=== PATIENT | male | born 1940 | race Caucasian/White ===

== ENCOUNTER → 2016-06-24 | Outpatient (CLI) | payer MEDICARE, OTHER | END | disposition home or self-care (01) | LOC: GMAB 10:23 | PROVIDERS: ATTEND Family Medicine | DX: Z12.5 Encounter for screening for malignant neoplasm of prostate (principal); R53.83 Other fatigue; I10 Essential (primary) hypertension | CPT/HCPCS: 84403; 84443; G0103 ==

== ENCOUNTER → 2017-05-31 | Outpatient (CLI) | payer MEDICARE, OTHER ==
--- NOTE | 2017-05-31 20:54 | US ---
EXAM DESCRIPTION: Carotid Duplex: ULTRASOUND. CLINICAL HISTORY: OCCLUSION AND STENOSIS OF BILATERAL CAROTID ARTERIES COMPARISON: None. TECHNIQUE: Transcutaneous scanning utilizing 2-dimensional and Doppler modes to evaluate the bilateral carotid systems and vertebral arteries. Percentage of diameter of stenosis or no stenosis recorded will be based upon NASCET criteria. FINDINGS: Peak systolic/end diastolic (CM-Sec) CCA Right 97/9 Left 82/17. ICA Right proximal 57/12, mid 64/14. Left proximal 49/12, mid 54/19. Vertebral Right 67/6 Left 37/12. ECA (PS Only) Right 104 left 65. ICA/CCA peak systolic ratio: Right 0.7 Left 0.7 ICA/CCA end diastolic ratio: Right 1.5 Left 1.1 Vertebral arteries: antegrade flow. Comments: Atherosclerotic calcification of the bilateral common carotid bifurcations. Area stenosis in the proximal left ICA is 24%. Diameter stenosis is 34%. Color turbulent flow in the distal ICAs bilaterally. IMPRESSION: 1. Doppler evaluation of the bilateral carotid systems and vertebral arteries shows no hemodynamically significant stenoses. 2. No significant amount of plaque seen in the carotid arteries bilaterally. Bilateral vertebral arteries showed antegrade-cephalad flow. 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
== END | disposition home or self-care (01) ==
LOC: US 11:00
PROVIDERS: ATTEND Family Medicine
DX: I65.23 Occlusion and stenosis of bilateral carotid arteries (principal)

== ENCOUNTER → 2018-02-23 | Outpatient (CLI) | payer MEDICARE, OTHER ==
--- NOTE | 2018-02-24 09:46 | US ---
EXAM DESCRIPTION: Soft Tissue,Abdomen CLINICAL HISTORY: 77 years Male, ENLARGED LYMPHNODES COMPARISON: None. TECHNIQUE: Targeted sonographic imaging of the left chest wall was performed by the reservations sales agent. Images were acquired and submitted for review. IMPRESSION: Targeted sonographic imaging of the left chest wall in the area palpated by the patient shows an oval circumscribed mass with heterogeneous internal echogenicity. This mass measures approximately 2.8 x 2.4 x 1.5 cm respectively. The mass is located immediately deep to the cutaneous layer. No internal vascularity is detected within this mass. No normal lymphatic tissue is seen. Broad differential ranging from sebaceous cyst to neoplastic disease. Consider surgical excision or image guided sampling. Electronically signed by: Alo Loya MD 02/24/2018 9:44 AM CDT
== END ==
LOC: RAD 12:42
PROVIDERS: ATTEND Family Medicine
DX: R59.9 Enlarged lymph nodes, unspecified (principal)

== ENCOUNTER 2018-08-02 19:46 | Emergency (ER) | payer MEDICARE, OTHER ==
--- NOTE | 2018-08-02 20:47 | RAD ---
2 VIEWS right HUMERUS RADIOGRAPHIC SERIES. INDICATIONS: Pain post fall. COMPARISONS: No comparisons are available. FINDINGS: Degenerative disease partially visualized in the right shoulder and right elbow. No fractures or dislocations. No lytic or blastic bone lesions. The partially visualized right ribs are intact. Lateral right lung is clear. IMPRESSION: Normal for age examination. Electronically signed by: Inder Santoro MD 08/02/2018 8:44 PM CDT
--- NOTE | 2018-08-02 20:49 | CT ---
EXAM DESCRIPTION: Maxillofacial CLINICAL HISTORY: 78 years Male fell onto nose COMPARISON: None. TECHNIQUE: Contiguous axial images obtained through the maxillofacial region without IV contrast. Reformatted images obtained. This exam was performed according to our department optimization program which includes automated exposure control, adjustment of the mA and/or kv according to patient size and/or use of iterative reconstruction technique. FINDINGS: Poorly defined foci of decreased attenuation in the brain parenchyma do not exert significant mass effect on surrounding structures and are likely sequela of prior insult, most likely on the basis of small vessel disease. There is soft tissue swelling at the bridge of the nose. There is a nondisplaced left nasal bone fracture in anatomic alignment. The post septal orbits appear unremarkable. No fluid or significant mucosal thickening in the visualized paranasal sinuses. No additional facial bone fractures are identified. IMPRESSION: Left nasal bone fracture. No other fracture. Electronically signed by: Awais Zimmer 08/02/2018 8:46 PM CDT
--- NOTE | 2018-08-02 21:51 | ED.PDOC ---
History of Present Illness - General Chief Complaint: Trauma Stated Complaint: facial pain, fall Time Seen by Provider: 08/02/18 21:37 Source: patient, family Exam Limitations: no limitations - History of Present Illness Initial Comments: PT WAS RUNNING AFTER GRANDSON, TRIPPED AND FELL ON THE CONCRETE AND HIT HIS FACE AND RUE. EPISTAXIS ENSUED (NOW RESOLVED). PAIN R HUMERUS. NO OTHER PAIN BESIDES NOSE AND R HUMERUS. Severity: moderate Improving Factors: immobilization Worsening Factors: nothing Associated Symptoms: denies symptoms Allergies/Adverse Reactions: Allergies Codeine Allergy (Verified 11/18/15 05:07) Home Medications: Ambulatory Orders Quinapril HCl [Accupril] 11/18/15 amLODIPine BESYLATE 11/18/15 Review of Systems - Review of Systems Constitutional: States: no symptoms reported EENTM: States: nose pain. Denies: eye pain, ear pain, throat pain, mouth pain Respiratory: Denies: cough, short of breath Cardiology: Denies: chest pain, palpitations Gastrointestinal/Abdominal: Denies: abdominal pain, nausea Genitourinary: States: no symptoms reported. Denies: pain Musculoskeletal: Denies: back pain, neck pain Skin: States: no symptoms reported Neurological: Denies: headache, numbness, paresthesia, tremors, weakness Endocrine: States: no symptoms reported Hematologic/Lymphatic: States: no symptoms reported All other Systems: Reviewed and Negative Past Medical History (General) - Patient Medical History Hx Congestive Heart Failure: No Hx Hypertension: Yes Hx Diabetes: No Hx MRSA: No Surgical History: appendectomy - Vaccination History Hx Tetanus, Diphtheria Vaccination: No Hx Influenza Vaccination: No Family Medical History - Family History Father Family History: Unknown Physical Exam - Physical Exam General Appearance: Alert, No apparent distress Eye Exam: bilateral normal Ears, Nose, Throat: hearing grossly normal, normal pharynx, sinus pain/drainage, other - BL NARES DRIED BLOOD. NO MALALIGNMENT BUT BL NASAL BRIDGE EDEMATOUS. Neck: non-tender, full range of motion, supple Respiratory: chest non-tender, lungs clear Cardiovascular/Chest: normal peripheral pulses, regular rate, rhythm Gastrointestinal/Abdominal: normal bowel sounds, non tender, soft Rectal Exam: deferred Back Exam: no CVA tenderness, no vertebral tenderness Extremity: normal range of motion, normal inspection, other - R HUMERUS TTP. NO ECCHYMOSIS. NO ABRASION. REMAINING EXTREMITIES PAINLESS FROM AND NTTP. 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 MAXILLOFACIAL CT: L NONDISPLACED NASAL BONE FRX. - EKG/XRAY/CT CT Ordered: Yes - facial Departure - Departure Clinical Impression: Nasal bone fracture Qualifiers: Encounter type: initial encounter Fracture type: closed Qualified Code(s): S02.2XXA - Fracture of nasal bones, initial encounter for closed fracture Contusion of upper arm, left Qualifiers: Encounter type: initial encounter Qualified Code(s): S40.022A - Contusion of left upper arm, initial encounter Disposition: Discharge to Home or Self Care Condition: Good Departure Forms: ED Discharge - Pt. Copy, Patient Portal Self Enrollment Instructions: Nose Fracture (DC) Diet: resume usual diet Activity: increase activity as tolerated Referrals: EDSON WEST MD [Primary Care Provider] - 1-2 Weeks Home Medications: Ambulatory Orders Quinapril HCl [Accupril] 11/18/15 amLODIPine BESYLATE 11/18/15 Additional Instructions: Please be cautious to avoid any contact with the nose in order to avoid further trauma.
[2018-08-02 22:03] VITALS: BP 164/81; TEMP 98.1; O2SAT 97
== END 2018-08-02 22:03 | disposition home or self-care (01) ==
LOC: ER 19:46
DX: S02.2XXA Fracture of nasal bones, initial encounter for closed fracture (principal); S40.022A Contusion of left upper arm, initial encounter; I10 Essential (primary) hypertension; Z79.899 Other long term (current) drug therapy; Z88.5 Allergy status to narcotic agent; W01.0XXA Fall on same level from slipping, tripping and stumbling without subsequent striking against object, initial encounter; Y93.02 Activity, running; Y92.9 Unspecified place or not applicable

== ENCOUNTER → 2018-08-10 | Outpatient (CLI) | payer MEDICARE, OTHER ==
--- NOTE | 2018-08-10 18:32 | MRI ---
MRI right shoulder without contrast INDICATION: Shoulder pain fall 2 days ago TECHNIQUE: Noncontrast MR imaging right shoulder FINDINGS: Diffuse tendinosis and high-grade interstitial partial tear subscapularis tendon with adjacent bursal edema. No complete retraction. No bicep rupture or dislocation. There is interstitial tendinosis intracapsular. Moderate hypertrophic AC joint osteoarthrosis. Prominent tendinosis with interstitial partial tears of the infraspinatus and supraspinatus greater than 50% maximal involvement but no retraction. Mild cystic change/resorption at the base the greater tuberosity. Moderate subacromial and subdeltoid bursitis and diffuse pericapsular edema especially anteriorly. Degenerative frayed-appearing small posterior superior labrum. Edema/cystic changes in the Hill-Sachs region raising question of a transient anterior dislocation/subluxation reduced. No advanced muscle atrophy IMPRESSION: High-grade partial tear subscapularis tendon without complete retraction Partial thickness tears and tendinosis supraspinatus and infraspinatus without retraction Degenerative posterior superior labral tear Resorptive cystic change and edema or small Hill-Sachs lesion posterior superior humerus Moderate hypertrophic AC joint arthrosis Subacromial and subdeltoid bursitis and pericapsular edema Interstitial tendinosis proximal long head bicep Electronically signed by: Marco A Mnae MD 08/10/2018 6:29 PM CDT
== END ==
LOC: MRI 09:00
PROVIDERS: ATTEND Physician Assistant
DX: S46.011A Strain of muscle(s) and tendon(s) of the rotator cuff of right shoulder, initial encounter (principal); M71.811 Other specified bursopathies, right shoulder; M19.011 Primary osteoarthritis, right shoulder; M75.21 Bicipital tendinitis, right shoulder

== ENCOUNTER → 2018-09-27 | Outpatient (CLI) | payer MEDICARE, OTHER | LOC: LAB.NP 13:47 | PROVIDERS: ATTEND Surgery | DX: L72.0 Epidermal cyst (principal) ==

== ENCOUNTER → 2019-10-27 | Outpatient (CLI) | payer MEDICARE, OTHER | LOC: GMAE 11:08 | PROVIDERS: ATTEND Family Medicine | DX: Z12.5 Encounter for screening for malignant neoplasm of prostate (principal); I10 Essential (primary) hypertension | CPT/HCPCS: 84443; G0103 ==

== ENCOUNTER → 2020-01-09 | Outpatient (CLI) | payer MEDICARE, OTHER ==
--- NOTE | 2020-01-09 16:44 | RAD ---
EXAM DESCRIPTION: Chest,2 Views CLINICAL HISTORY: CHRONIC COUGH COMPARISON: Previous chest x-ray November 18, 2015 TECHNIQUE: PA/lateral FINDINGS: Heart size is normal with normal pulmonary vascularity. No pleural effusion or pneumothorax. Abnormal densities seen in the left lower lobe covering a broad area which may represent pneumonia. Rounded area along the left heart margin could be a mass 5.7 cm. Correlate with chest CT findings. Right lung is clear. Lateral view shows intact sternum and T-spine. IMPRESSION: Infiltrative changes in the left lung base with left lower lobe mass below the left hilum 5.7 cm. Electronically signed by: Davis Brooks MD 01/09/2020 4:42 PM CDT
--- NOTE | 2020-01-09 16:50 | CT ---
EXAM DESCRIPTION: Chest w/o Contrast CLINICAL HISTORY: 79 years Male, CHRONIC COUGH COMPARISON: None. TECHNIQUE: Transaxial images were obtained without intravenous contrast media. Sagittal and coronal reconstruction was performed. This exam was performed according to our departmental dose-optimization program, which includes automated exposure control, adjustment of the mA and/or kV according to patient size and/or use of iterative reconstruction technique. FINDINGS: A 3.43 cm in diameter mass is observed in the inferior pole of the patient's right thyroid. Further evaluation with sonography should be considered. Calcific atherosclerotic changes observed in the thoracic aorta without evidence of aneurysmal dilatation. A mass is observed in the inferior aspect of the left hilum measuring 5.26 cm in diameter. Its felt consistent with a pulmonary neoplasm. No pathologic axillary adenopathy is observed. Small mediastinal nodes are observed. A right lower lobe lung mass is also identified measuring 4.77 cm in diameter. No pleural fluid is identified. Minimal left adrenal nodularity is observed. No distinct mass is detected. No further mass lesions are detected. Mild degenerative changes are seen in the thoracic spine. IMPRESSION: 1. A right lower lobe lung mass is observed measuring 4.77 cm in diameter. This felt represent a primary lung neoplasm. 2. A left infrahilar mass is observed and felt represent hilar adenopathy. It measures 5.26 cm in diameter. Electronically signed by: Tommy Junior MD 01/09/2020 4:48 PM CDT
== END | disposition home or self-care (01) ==
LOC: CT 10:46
PROVIDERS: ATTEND Family Medicine
DX: R05 Cough (principal)

== ENCOUNTER → 2020-01-10 | Outpatient (CLI) | payer MEDICARE, OTHER ==
--- NOTE | 2020-01-11 15:49 | US ---
US THYROID CLINICAL STATEMENT:79 years Male NONTOXIC SINGLE THYROID NODULE. COMPARISON: None TECHNIQUE: Transcutaneous scanning, grayscale and Doppler modes. FINDINGS: Size right thyroid lobe: 5.3 x 3.7 x 3.5 cm Size left thyroid lobe: 3.6 x 1.3 x 1.1 cm Size isthmus: 0.38 cm Estimated total number of nodules greater than or equal to 1 cm: 1.. No fluid collection or large calcifications. Nodule 1: Size: 4.6 x 3.2 x 3.0 cm Location: Right Mid Composition: mixed cystic and solid: 1 point Echogenicity: hypoechoic: 2 points Shape: wider than tall: 0 points Margins: smooth: 0 points Echogenic foci: none: 0 points ACR Total Points: 3; ACR TI-RADS risk category: TR3 - mildly suspicious nodule. No abnormalities in the surrounding soft tissues. IMPRESSION: 1. Nodule 1: ACR TI-RADS 2017 Category TR3. Recommend: Ultrasound-guided fine needle aspiration. Recommendations based upon [facility] Best Practice recommendations and ACR TI-RADS 2017 guidelines. Please see below*. 2. The surrounding soft tissues are unremarkable. *ACR TI-RADS 2017 Recommendations for imaging follow-up of nodules (baseline study): TR1: No FNA or follow up TR2: No FNA or follow up TR3: FNA if >/= 2.5 cm, follow up if 1.5 - 2.4 cm in 1, 3, and 5 years TR4: FNA if >/= 1.5 cm, follow up if 1.0 - 1.4 cm in 1, 2, 3, and 5 years TR5: FNA if >/= 1.0 cm, follow up if 0.5 - 0.9 cm every year for 5 years ACR TI-RADS recommends that no more than two nodules with the highest ACR TI-RADS total point should be biopsied and no more than four nodules should be followed. These recommendations do not apply to patients with increased risk for thyroid cancer or patients with symptomatic thyroid disease. Electronically signed by: Awais Peres MD 01/11/2020 3:48 PM CDT
== END | disposition home or self-care (01) ==
LOC: US 14:30
PROVIDERS: ATTEND Family Medicine
DX: E04.1 Nontoxic single thyroid nodule (principal)

== ENCOUNTER → 2020-02-12 | Outpatient (CLI) | payer MEDICARE, OTHER | LOC: YCFC.O 15:04 | PROVIDERS: ATTEND Family Medicine | DX: R10.9 Unspecified abdominal pain (principal); Z11.59 Encounter for screening for other viral diseases ==

== ENCOUNTER 2020-02-13 12:18 | Inpatient (IN) | payer MEDICARE, OTHER ==
--- NOTE | 2020-02-13 13:39 | CT ---
EXAM DESCRIPTION: Abdomen/Pelvis w/Contrast CLINICAL HISTORY: ABD PAIN COMPARISON: CT chest January 09, 2020 TECHNIQUE: Postcontrast CT images of the abdomen and pelvis are obtained using standard imaging protocol. This exam was performed according to our departmental dose-optimization program, which includes automated exposure control, adjustment of the mA and/or kV according to patient size and/or use of iterative reconstruction technique . FINDINGS: Visualized lower chest shows coronary artery calcifications. Dumb leone shape mass in the left infrahilar region measures maximum 9.9 cm transverse by 4.3 cm similar to previous with largest component extending inferior medially. Mild nodular appearance of the liver capsule. Spleen, pancreas, and right adrenal gland are unremarkable. Mild enlargement of the left adrenal gland measuring 1.5 x 2.0 cm stable from previous. Gallbladder is distended with increased attenuation material measuring at least 6.4 cm transverse with moderate surrounding fat stranding which is new from previous. No biliary tract obstruction is seen. Small calcific densities are seen in the fundus of the gallbladder primarily on delayed images. Moderate vascular calcifications. No nephrolithiasis. Normal cortical enhancement. No ureteral calcification or obstruction. Urinary bladder poorly distended and does not fill with contrast on delayed images. Prostate is enlarged measuring at least 5.6 x 5.7 cm with hypodensity in the superior right aspect of the prostate measuring 12 mm. Prostate indents the floor the urinary bladder. The appendix is not definitely identified. Stomach is nondistended. Mild fat stranding around the second portion of the duodenum likely related to gallbladder inflammation. No small bowel obstruction or bowel wall thickening. Scattered mild diverticuli of the descending to sigmoid colon. The splenic flexure to transverse colon is poorly distended. Small amount of ascites around the liver, spleen, and in the dependent portion of the pelvis is seen. L-spine units of less than 20. No free intraperitoneal air. Nonspecific less than 1 cm abdominal or retroperitoneal lymphadenopathy. Osseous structures show no aggressive bony lesions. Small fat-containing left inguinal hernia. Vertebral body hemangioma at L1. Moderate spondylitic changes of the spine are seen. IMPRESSION: Distended gallbladder with surrounding inflammation suggest acute cholecystitis versus acalculous cholecystitis. Hyperdensities in the gallbladder delayed images suggest cholelithiasis. Recommend further evaluation with right upper quadrant ultrasound. Interval development of mild ascites in the abdomen and pelvis likely reactive. Inflammation around the second portion of the duodenum likely related to gallbladder inflammation although early pancreatitis can have a similar appearance. Enlarged prostate indenting the floor the urinary bladder could represent BPH versus prostate cancer. Recommend correlation with physical exam findings and serum PSA as indicated. Colon diverticulosis without CT evidence of diverticulitis. Pulmonary masses in the partly visualized left lower chest compatible with likely primary lung cancer as described on previous CT of the chest. Electronically signed by: Mohamud Damon MD 02/13/2020 1:36 PM CDT
--- NOTE | 2020-02-13 15:55 | HP ---
SUPERVISING PHYSICIAN: Sarah Tabares MD CHIEF COMPLAINT: Right upper quadrant pain. HISTORY OF PRESENT ILLNESS: Mr. Hensley is an 79-year-old male patient who was initially seen in [facility] for right upper quadrant pain that started this past . Initial labs yesterday showed he had a mild leukocytosis of 13,500 with a left shift. Bilirubin was 1.3. Lipase was slightly elevated at 72. He was sent home and followed up today with additional lab studies and CT. Lipase was 335. CT of his abdomen showed he had findings suggestive of acute cholecystitis versus acalculous cholecystitis with possibly developing pancreatitis. He was referred from the clinic by Dr. Morrison for further evaluation and surgical evaluation by Dr. Bentley. His labs on admission did show his bilirubin had gone up to 4.5 as well as his AST 56 and ALT up to 135. Lipase was 335. Findings of lab and based on clinically diagnostics suggestive cholangitis, Dr. Bentley was able to discuss the case with Dr. Alba in [place], and the plan is to admit to the patient for possible MRCP versus ERCP in the morning after lab is repeated and ultimately a cholecystectomy. He was admitted in stable condition. PAST MEDICAL HISTORY: 1. Hypertension. 2. Benign prostatic hypertrophy. 3. Gastroesophageal reflux disease. PAST SURGICAL HISTORY: 1. Appendectomy. 2. Hernia repair. HOME MEDICATIONS: Awaiting updated list in electronic medical records. Previous chart shows he is on: 1. Albuterol inhaler as needed. 2. Amlodipine 10 mg daily. 3. Finasteride 5 mg daily. 4. Naprosyn 500 mg. 5. Protonix 40 mg daily. 6. Quinapril 20 mg daily. 7. Flomax 0.4 mg daily. ALLERGIES: CODEINE. FAMILY HISTORY: Noncontributory. SOCIAL HISTORY: The patient is retired, . He lives in [place], [place]. He denies any illicit drug use, alcohol or tobacco use. REVIEW OF SYSTEMS: CONSTITUTIONAL: Positive for general malaise. Negative for any fevers, chills or unintentional weight loss. HEENT: Negative for headaches, sore throats, earaches, nasal congestion, vision changes. CARDIOVASCULAR: Negative for chest pain, palpitations or syncopal episodes. GASTROINTESTINAL: As noted in history of present illness, right upper quadrant for 4 days with some associated nausea which has extended into his epigastric reason. MUSCULOSKELETAL: Negative for arthralgias, joint swelling. SKIN: Negative for lesions, rashes, moles or unexplained changes. NEUROLOGIC: Negative for ataxia, seizures, syncopal episodes, focal deficits. HEMATOLOGIC: Negative for easy bruising, unexplained bleeding or transfusion reactions. PHYSICAL EXAMINATION: VITAL SIGNS: Temperature 98.4, pulse 154/74, respirations 18, saturation 93% on room air. GENERAL: The patient looks to be resting comfortably. He does not appear to be in any distress. He is alert. HEENT: Tympanic membranes clear bilaterally. Oropharynx is pink with dry mucous membranes. NECK: Supple, nontender with full range of motion. No jugular venous distention noted. RESPIRATORY: Lung sounds are clear to auscultation, just diminished towards the bases due to the patient is hesitant to take full deep breath. No rhonchi, wheezes or rales. CARDIOVASCULAR: Regular rate and rhythm without any appreciable murmurs, gallops, or rubs. ABDOMEN: Minimally tender overlying the right upper quadrant extending to the epigastric region with some mild tenderness noted over his umbilical region. No signs of complications. No rebound tenderness, no point tenderness. Bowel sounds active. EXTREMITIES: There is no cyanosis, clubbing or edema. NEUROLOGIC: Cranial nerves II-XII are grossly intact. Facial features are symmetrical. Extraocular movements are within normal limits. There is no nystagmus noted. The patient is alert and oriented times three. SKIN: Warm, pink and dry. LABORATORY: White count today on admission was up 17,300, hemoglobin 12.8, hematocrit 37.0, platelet count 273,000. Differential does show a left shift. Chemistries show slightly low sodium of 131, potassium 4.4, BUN 26, creatinine 1.33. Lactic acid normal at 2.0, calcium normal at 8.8. Bilirubin up to 4.5, AST 56, ALT 135, alkaline phosphatase 290. Amylase elevated at 203, lipase 335. Troponin 0.04. Urinalysis was pending. MICROBIOLOGY: Respiratory panel was negative for all bacterial and viral targets as tested. RADIOLOGY: Abdominopelvic CT with contrast per radiologic interpretation as noted above showed distended gallbladder with surrounding inflammation suggestive of acute cholecystitis versus acalculous cholecystitis. There were hyperdensities in the gallbladder suggesting cholelithiasis and intermittent development of mild ascites in the abdomen and pelvis, likely reactive, with some inflammation around the secondary portion of the duodenum, likely related to gallbladder inflammation, although early pancreatitis can have similar appearance. There was notably enlarged prostate indenting the floor of the urinary bladder which could represent benign prostatic hypertrophy versus prostate cancer. Chest x-ray per radiologic interpretation showed stable appearance of a 5.8 by 4.6 by 5.3 cm left lower lobe mass. No other acute abnormalities were noted. ASSESSMENT: 1. Acute cholecystitis with cholangitis pending magnetic resonance cholangiopancreatography. 2. Elevated bilirubin, liver transaminases suggestive of cholangitis with clinical findings on exam and CT suggesting acute cholecystitis. 3. Acute pancreatitis secondary to #1. 4. Mild electrolyte imbalance with hyponatremia. 5. Chronic gastroesophageal reflux disease. 6. Benign prostatic hypertrophy. 7. Hypertension. PLAN: Mr. Hensley is going to be admitted and have an MRCP in the morning. Dr. Alba and Dr. Bentley did talk to one another and Dr. Bentley is going to see the patient in consultation tonight. We will recheck his labs in the morning. If his bilirubin is down and MRCP does not show significant findings, we will await Dr. Bentley's decision on taking the patient to surgery. I would anticipate his length of stay to be at least two to three days. He will be NPO. He will be on pain control with morphine as needed. He will have IV fluids with normal saline at 125. We will recheck labs in the morning. We will continue to monitor and treat as needed until we can transfer care as an outpatient. #[id number] [facility]
[2020-02-13] MEDS ORDERED: SODIUM CHLORIDE 0.9% (FLUSH) 10 ML SYG IV PRN (16:26)
[2020-02-13] MEDS ORDERED: ONDANSETRON INJ 4 MG/2 ML VIAL IV PRN (16:26)
[2020-02-13] MEDS ORDERED: IV SET AND CAP CHANGE INJ INJ SCH (16:30)
--- NOTE | 2020-02-13 18:26 | RAD ---
EXAM: XR Chest, 2 Views CLINICAL HISTORY: ruq pain TECHNIQUE: Frontal and lateral views of the chest. COMPARISON: 01/09/2020 FINDINGS: Lungs: Stable approximate 5.8 x 4.6 x 5.3 cm left lower lobe mass. Right lung clear. Pleural space: No abnormality noted. No pneumothorax. Heart: No abnormality noted. No cardiomegaly. Mediastinum: No abnormality noted. Bones/joints: No abnormality noted. Upper abdomen: No free air noted under the diaphragms. IMPRESSION: 1. Stable approximate 5.8 x 4.6 x 5.3 cm left lower lobe mass. 2. No acute abnormality noted. Electronically signed by: Lenora Diez MD 02/13/2020 6:24 PM CDT
[2020-02-13] MEDS ORDERED: PIPERACILLIN/TAZOBACTAM 3.375 GM VIAL IVPB ONE ×2 (18:48→22:42)
[2020-02-13] MEDS ORDERED: SODIUM CHL 0.9% 100ML MINI-BAG 100 ML IVPB ONE ×2 (18:49→22:43)
[2020-02-13] MEDS: SODIUM CHLORIDE 0.9% 1000ML 1,000 ML IVS PRN (18:58)
[2020-02-13] MEDS: PIPERACILLIN/TAZOBACTAM 3.375 GM in SODIUM CHLORIDE 0.9% 100ML 100 ML IVPB SCH ×2 (18:58→23:56)
[2020-02-13] MEDS: MORPHINE SULFATE INJ 10 MG/ML VIAL IV PRN (19:02)
[2020-02-14] MEDS ORDERED: PIPERACILLIN/TAZOBACTAM 3.375 GM VIAL IVPB ONE (02:35)
[2020-02-14] MEDS ORDERED: SODIUM CHL 0.9% 100ML MINI-BAG 100 ML IVPB ONE (02:36)
[2020-02-14] MEDS: SODIUM CHLORIDE 0.9% 1000ML 1,000 ML IVS PRN (04:20)
[2020-02-14] MEDS: PIPERACILLIN/TAZOBACTAM 3.375 GM in SODIUM CHLORIDE 0.9% 100ML 100 ML IVPB SCH (05:34)
[2020-02-14] MEDS: MORPHINE SULFATE INJ 10 MG/ML VIAL IV PRN ×2 (05:37→11:51)
[2020-02-14] MEDS ORDERED: diphenhydrAMINE HCL 50 MG/ML VIAL ONE (08:46)
[2020-02-14] MEDS: diphenhydrAMINE HCL 50 MG/ML VIAL IV PRN ×2 (08:50→11:50)
--- NOTE | 2020-02-14 09:39 | MRI ---
EXAM DESCRIPTION: Abdomen w/wo Contrast CLINICAL HISTORY: 79 years Male, MRI/MRCP for acute cholangitis COMPARISON: CT abdomen and pelvis February 13, 2020 FINDINGS: Coronal T2 images show large masses in the left lower lung consistent with primary bronchogenic carcinoma or possibly large metastases. One mass measures 5.4 cm and the other more medial mass measures 6 cm. In the upper abdomen, markedly distended gallbladder is seen with extensive surrounding edema. No low signal intensity stones are identified in the gallbladder or in the common hepatic duct or common bile duct. Normal appearance of the pancreas and pancreatic duct. On the coronal images, the spleen is large measuring 14.7 cm in length. No surface irregularity of the liver to suggest cirrhosis. Small cyst in the lateral segment left lobe of liver. Small parapelvic cysts in the kidneys with a few tiny cortical cysts on the left. Small amount of fluid around the liver and spleen consistent with minimal abdominal ascites. High signal intensity in the right lateral aspect of L2 consistent with hemangioma, incidental finding. The appearance on CT also consistent with hemangioma rather than osseous metastatic lesion at this site. Axial T2 images show edematous gallbladder with high density in the dependent portion which could represent tiny sand-like calculi. No calcified stones are seen on the CT. Patient has a sonogram of the gallbladder scheduled. In this case, the findings overall are most consistent with acute calculous cholecystitis. Punctate low signal intensity focus in the distal common bile duct could be tiny intraluminal calculus (axial image 14, series 4 1) but the MRCP images are more suggestive of artifact than real stones. Axial T1 dual phase gradient echo imaging of the upper abdomen shows loss of signal intensity of the liver consistent with hepatic steatosis. In the posterior right lobe of the liver, the in phase signal intensity is 411.6 and the opposed phase signal intensity is 158.9. Previous CT was not impressive for hepatic steatosis. Small peripheral cyst in the right lobe of the liver is low in signal intensity on T1 images measuring 1.1 cm. Axial T1-weighted images show increased signal intensity within the dependent portion of the gallbladder which could represent fatty or hemorrhagic fluid. Axial diffusion-weighted images show additional small cyst in the lateral segment left lobe of liver. MRCP images with 3-D MIP technique are evaluated with spin display. Normal appearance of intrahepatic and extra hepatic bile ducts with no filling defects. Coronal MIP images show no focal low signal intensity filling defects in the bile ducts. No pathologic dilatation with common hepatic duct measuring 7 mm in diameter and common bile duct at the level of the pancreas measuring 6 mm in diameter. Normal appearance the pancreatic duct. Postcontrast T1 fat sat thrive images show positive enhancement of upper abdominal vessels. Normal enhancement of renal cortex and medulla bilaterally on initial and delayed images. Normal late arterial and late portal venous phase imaging of the liver and spleen. No pancreatic lesion is evident in the aorta enhances normally. Tiny cysts in the right and left lobes of the liver incidentally noted, nonenhancing. IMPRESSION: Distended gallbladder with surrounding inflammation consistent with acute calculous or acalculous cholecystitis (see above). MRCP images are negative for bile duct filling defects to suggest stones. Left lower lobe lung masses, likely malignant. Electronically signed by: Davis Brooks MD 02/14/2020 9:37 AM CDT
--- NOTE | 2020-02-14 09:56 | US ---
EXAM DESCRIPTION: Gall Bladder: ULTRASOUND. CLINICAL HISTORY: Acute Cholecystitis f/u on CT COMPARISON: CT scan abdomen and pelvis January 2019. TECHNIQUE: Transabdominal scanning: Rosenthal-scale and Doppler modes. FINDINGS: Gallbladder: Enlarged and contains hypoechoic and echogenic material with echogenic material with shadowing along the gravity dependent wall fluid around the gallbladder wall. Wall thickening 8.75 mm . Tender with transducer pressure. Common bile duct: caliber 7.3 mm dilated and may contain sludge or gravel. The Liver: Heterogeneously increased echogenicity; contour liver capsule smooth where seen. No fluid around the liver. Intrahepatic biliary ducts normal caliber. Doppler hepatopedal flow portal vein.. Normal caliber portal vein 11 mm. Long axis right lobe 19.5 cm. Pancreas: normal size Normal echogenicity. Duct Visualized 3.5 mm caliber in the mid body. Aorta: 2.2 cm normal caliber. Right kidney: long axis is 12.8 cm; volume 241.1 mL. Echogenic cortex with thinning. No echogenic stones or hydronephrosis or perirenal fluid.. IMPRESSION: 1. Enlarged gallbladder with wall thickening surrounded by fluid, containing sludge and small gravel-like stones. Tender to transducer pressure. Consistent with acute cholecystitis. Dilated common bile duct which may contain gravel or sludge. Surgical consult recommended. 2. Fatty enlarged liver. Normal caliber of the ducts and normal vascularity. No ascites. Pancreatic duct is visualized but no definite fluid collection or mass. 3. age-related changes in the right kidney. Proximal abdominal aorta and IVC normal caliber. Electronically signed by: Awais Peres MD 02/14/2020 9:54 AM CDT
[2020-02-14 12:38] VITALS: BP 124/72; TEMP 98.3; O2SAT 93
--- NOTE | 2020-02-15 14:02 | DS ---
SUPERVISING PHYSICIAN: Sarah Tabares MD ADMISSION DIAGNOSIS: 1. Acute cholecystitis with cholangitis pending magnetic resonance cholangiopancreatography. 2. Elevated bilirubin, liver transaminases suggestive of cholangitis with clinical findings on exam and CT suggesting acute cholecystitis. 3. Acute pancreatitis secondary to #1. 4. Mild electrolyte imbalance with hyponatremia. 5. Hyperbilirubinemia secondary to cholangitis acute cholecystitis requiring endoscopic retrograde cholangiopancreatography, magnetic resonance cholangiopancreatography. 6. Chronic gastroesophageal reflux disease. 7. Benign prostatic hypertrophy. 8. Hypertension. DISCHARGE DIAGNOSIS: 1. Acute cholecystitis with cholangitis requiring endoscopic retrograde cholangiopancreatography 2. Persistent elevated bilirubin consistent with cholangitis. 3. Acute pancreatitis secondary to #1. 4. Mild electrolyte imbalance with hyponatremia. 5. Hyperbilirubinemia secondary to cholangitis acute cholecystitis requiring endoscopic retrograde cholangiopancreatography, magnetic resonance cholangiopancreatography. 6. Chronic gastroesophageal reflux disease. 7. Benign prostatic hypertrophy. 8. Hypertension. 9. Left lower lobe lung mass, followed by Dr. Morrison. REASON FOR HOSPITALIZATION: Mr. Hnesley is an 79-year-old male patient who was initially seen in [facility] for right upper quadrant pain that started this past . Initial labs yesterday showed he had a mild leukocytosis of 13,500 with a left shift. Bilirubin was 1.3. Lipase was slightly elevated at 72. He was sent home and followed up today with additional lab studies and CT. Lipase was 335. CT of his abdomen showed he had findings suggestive of acute cholecystitis versus acalculous cholecystitis with possibly developing pancreatitis. He was referred from the clinic by Dr. Morrison for further evaluation and surgical evaluation by Dr. Bentley. His labs on admission did show his bilirubin had gone up to 4.5 as well as his AST 56 and ALT up to 135. Lipase was 335. Findings of lab and based on clinically diagnostics suggestive cholangitis, Dr. Bentley was able to discuss the case with TRICIA Mueller in [place], and the plan is to admit to the patient for possible MRCP versus ERCP in the morning after lab is repeated and ultimately a cholecystectomy. He was admitted in stable condition. LABORATORY: White count on transfer was 12,400, hemoglobin 11.9, hematocrit 34.0, platelet count 246,000. Differential did show a left shift. Chemistry showed sodium 134, potassium normal at 4.1, BUN 30, creatinine 1.32. Lactic acid 2.0, calcium 8.2. Total bilirubin was showing persistent elevation at 4.3, indirect bilirubin 3.4, direct 0.9. Liver functions showed elevated ALT of 100, alkaline phosphatase 262. Amylase and lipase normalized to 83 and 40 respectively. RADIOLOGY: Abdominopelvic CT showed distended gallbladder with surrounding inflammation suggestive of acute cholecystitis versus acalculous cholecystitis, hyperdensities in gallbladder delayed images suggest cholelithiasis. Gallbladder ultrasound showed enlarged gallbladder with wall thickened surrounded by fluid, containing sludge with small gavel-like stones. Tender with transducer pressure consistent with acute cholecystitis. Dilated common bile duct which may contain gravel or sludge. MRI/MRCP per radiologic interpretation showed distended gallbladder with surrounding inflammation consistent with acute calculous or acalculous cholecystitis. MRCP images were negative for bile duct filling defects to suggest stones. Left lower lobe lung mass, likely malignant. Please see those full reports for details. His chest x-ray showed stable approximate 5.8 x 4.6 x 5.2 cm left lower lobe mass. Needing further followup as an outpatient. HOSPITAL COURSE: Mr. Hensley was admitted for acute cholecystitis. During workup, he was found to have cholangitis. A surgical consultation was secured with Dr. Bentley as well as consultation with Dr. Alba in [place]. The initial plan was to admit to the hospital here, get MRCP in the morning and check his labs to ensure they were showing resolution of the hyperbilirubinemia secondary to cholangitis. He was admitted, made NPO and provided pain management. Repeat labs in the morning along with additional imaging studies suggested possible stones within the bile duct. At that point, recommendation by Dr. Alba was to transfer the patient for ERCP. Dr. Bentley did see the patient in consultation. Please see his note for details. The patient was stable at time of transfer. Discharged vital signs showed temperature 98.3, pulse 85, blood pressure 124/72, respirations 16, saturation 92% on room air. PLAN: Mr. Hensley was transferred to [facility] for gastroenterology consultation with surgical consultation not available at [facility] due to the fact the patient needs an ERCP. The patient was stable at time of transfer. He was transferred via ground ambulance. He remained NPO on discharge. Vital signs were stable as noted above. He will need to followup with Dr. Morrison once discharged. He will need additional followup in regards to the lung mass identified on CT which actually has been initially noted on workup as an outpatient with Dr. Morrison. CONDITION ON TRANSFER: Stable, but guarded. DISPOSITION: The patient was transferred to [facility] for gastroenterology consultation and ERCP not available at [facility]. #[id number] [facility]
== END 2020-02-14 12:34 | disposition short-term general hospital (02) | DRG 444 ==
LOC: LAB.O 12:18 → OBSVTOIN 15:52 → MS 15:52
PROVIDERS: ADMIT Nurse Practitioner Family; ATTEND Nurse Practitioner Family
PROC: BW211ZZ Computerized Tomography (CT Scan) of Abdomen and Pelvis using Low Osmolar Contrast (ICD-10-PCS; principal; 2020-02-13)
DX: K81.0 Acute cholecystitis (principal); K85.90 Acute pancreatitis without necrosis or infection, unspecified; K83.09 Other cholangitis; E87.1 Hypo-osmolality and hyponatremia; K21.9 Gastro-esophageal reflux disease without esophagitis; N40.0 Benign prostatic hyperplasia without lower urinary tract symptoms; I10 Essential (primary) hypertension; R91.8 Other nonspecific abnormal finding of lung field; Z88.5 Allergy status to narcotic agent; Z79.1 Long term (current) use of non-steroidal anti-inflammatories (NSAID); Z79.899 Other long term (current) drug therapy

== ENCOUNTER → 2020-06-04 | Outpatient (CLI) | payer MEDICARE, OTHER ==
--- NOTE | 2020-06-05 10:31 | CT ---
Study: CT Chest. Indication: MALIGNANT NEOPLASM Technique: CT imaging of the chest obtained after intravenous administration of contrast. This exam was performed according to our departmental dose-optimization program, which includes automated exposure control, adjustment of the mA and/or kV according to patient size and/or use of iterative reconstruction technique. Comparison: January 08, 2001 8 Findings: Mild cardiomegaly. Scattered atherosclerosis. Enlarged subcarinal lymph node measuring up to 3.1 cm x 1.5 cm, minimally progressed compared to the prior. Large left hilar mass/adenopathy redemonstrated. On the prior examination it demonstrated a bilobed appearance. However compared to the prior there is more central fullness and continuity between the 2 dominant components indicating progressive disease. It measures up to 11.9 cm in maximum transaxial dimension, previously 10.8 cm. More significant involvement of the left lower lobe bronchi noted which are narrowed. No pleural effusion or pneumothorax. Degenerative changes of the spine noted. Impression: Increased size and fullness of the large left hilar mass concerning for malignancy. Slightly progressed size of the pathologically enlarged subcarinal lymph node noted as well. Additional stable findings as above. Electronically signed by: Nikos Zurita MD 06/05/2020 10:29 AM CATEGORY DEVELOPMENT MANAGER
== END ==
LOC: LAB.O 16:29
PROVIDERS: ATTEND Family Medicine
DX: C34.90 Malignant neoplasm of unspecified part of unspecified bronchus or lung (principal); R59.9 Enlarged lymph nodes, unspecified